=== PATIENT | female | born 2000 | race Caucasian/White ===

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

== ENCOUNTER → 2021-09-08 | Outpatient (CLI) | payer OTHER ==
[~2021-09-08] MED LIST: CETIRIZINE HCL10 MG PO; CIPRO500 MG PO; DESYREL 50 MG T50 MG PO; FLONASE 0.05% N16 GM; LAMICTAL100 MG PO; MELATONIN3 MG PO; NORCO 7.5-3251 EACH PO; PAXIL10 MG PO; VENTOLIN HFA 66.7 GM INH; ZOLOFT50 MG PO
== END ==
LOC: LAB 10:58
DX: E03.9 Hypothyroidism, unspecified (principal)
CPT/HCPCS: 36415; 84443

== ENCOUNTER → 2021-10-28 | Outpatient (CLI) | payer OTHER | LOC: MRI 12:21 | DX: G40.209 Localization-related (focal) (partial) symptomatic epilepsy and epileptic syndromes with complex partial seizures, not intractable, without status epilepticus (principal) | CPT/HCPCS: 70553; A9577 ==